=== PATIENT | male | born 1970 | race Caucasian/White ===

== ENCOUNTER 2016-09-03 19:14 | Inpatient (IN) | payer OTHER ==
[~2016-09-03] VITALS: Ht 188 cm; Wt 88.4 kg
[2016-09-03 20:09] LABS: HEMATOCRIT 38.5 % (38.0-50.0); MCH 30.8 PG (29.0-34.0); MCHC 34.8 G/DL (30.0-36.0); MCV 88.5 FL (86-99); PLATELET COUNT 237 K/uL (156-360); RBC DIS.WIDTH-CV 12.6 % (11.8-14.6); RBC DIS.WIDTH-SD 39.9 % (39-53); RED BLOOD COUNT 4.35 M/uL (4.00-5.50); WHITE BLOOD COUNT 6.1 K/uL (4.1-10.2)
[2016-09-03 20:20] LABS: CHLORIDE 101 mEq/L (99-109); POTASSIUM 3.4 mEq/L (3.7-5.4); SODIUM 136 mEq/L (136-147)
[2016-09-03 20:22] LABS: GLUCOSE 131 mg/dL (70-99)
[2016-09-03 20:23] LABS: ANION GAP 16 MEQ/L (2-14)
[2016-09-03 20:26] LABS: UREA NITROGEN (BUN) 4 mg/dL (9-23)
[2016-09-03 20:33] LABS: GFR ESTIMATE (CALCULATED) > 59 mL/min/
[2016-09-03 21:48] LABS: ADD MIUA? NO; BILIRUBIN NEGATIVE; BLOOD NEGATIVE; COLOR YELLOW ((YELLOW)); GLUCOSE (STRIP) NEGATIVE; KETONES 40; LEUKOCYTES NEGATIVE; NITRITE NEGATIVE; PH, URINE 6.5 (5-8); PROTEIN (STRIP) NEGATIVE; SPECIFIC GRAVITY 1.011 (1.000-1.030)
[2016-09-03 21:57] LABS: AMPHETAMINE NEGATIVE (500 ng/mL); BENZODIAZEPINES NEGATIVE (150 ng/mL); COCAINE NEGATIVE (150 ng/mL); METHAMPHETAMINE NEGATIVE (500 ng/mL); OPIATES (MORPHINE) NEGATIVE (100 ng/mL); PHENCYCLIDINE NEGATIVE (25 ng/mL); THC CANNABINOIDS NEGATIVE (50 ng/mL)
[2016-09-03 21:58] LABS: BARBITURATES NEGATIVE (200 ng/mL); INTERNAL CONTROLS VALID? YES; METHADONE NEGATIVE (200 ng/mL); OXYCODONE NEGATIVE (100 ng/mL); PROPOXYPHENE NEGATIVE (300 ng/mL); TRICYCLIC ANTIDEPRESSANTS PRESUMPTIVE POSITIVE (300 ng/mL)
[2016-09-03 22:11] LABS: SERUM ETHYL ALCOHOL < 10 mg/dL
[2016-09-04 04:20] VITALS: BP 140/91
[2016-09-04 09:40] VITALS: BP 113/63
== END 2016-09-04 13:50 | disposition home or self-care (01) | DRG 885 ==
LOC: EDBD 19:14 → EME 19:14 → 1WEST 23:27 → EDOF 23:27 → 1WEST 09-04 04:14
PROVIDERS: Nurse Practitioner Family
DX: F39 Unspecified mood [affective] disorder (principal); F10.20 Alcohol dependence, uncomplicated; F60.2 Antisocial personality disorder
CPT/HCPCS: 70450; 71020; 80048; 81003; 85027; 90837; 99281; 99285; G0480; J2060

== ENCOUNTER 2016-09-09 21:08 | Inpatient (IN) | payer OTHER ==
[~2016-09-09] VITALS: Ht 195.6 cm; Wt 87.0 kg
[2016-09-09 22:01] LABS: ADD MIUA? NO; BILIRUBIN NEGATIVE; BLOOD NEGATIVE; COLOR YELLOW ((YELLOW)); GLUCOSE (STRIP) NEGATIVE; KETONES NEGATIVE; LEUKOCYTES NEGATIVE; NITRITE NEGATIVE; PH, URINE 6.5 (5-8); PROTEIN (STRIP) NEGATIVE; SPECIFIC GRAVITY 1.005 (1.000-1.030); UCUL ADDED? NO; UROBILINOGEN 0.2 MG/DL (0.2-1.0)
[2016-09-09 22:07] LABS: EOSINOPHIL (%) 0.7 % (0-5); EOSINOPHIL COUNT 0.1 K/uL (0-0.3); HEMATOCRIT 41.3 % (38.0-50.0); IMMATURE GRANULOCYTE (%) 0.2 % (0.0-0.7); IMMATURE GRANULOCYTE COUNT 0.2 K/uL; LYMPHOCYTE COUNT 2.8 K/uL (1.0-2.8); MCH 30.8 PG (29.0-34.0); MCHC 34.9 G/DL (30.0-36.0); MCV 88.2 FL (86-99); MEAN PLAT.VOLUME 8.8 uM^3 (9.0-12.4); MONOCYTE COUNT 0.8 K/uL (0-0.8); NEUTROPHIL (%) 67.8 % (45-76); NEUTROPHIL COUNT 7.8 K/uL (1.8-6.4); PLATELET COUNT 336 K/uL (156-360); RBC DIS.WIDTH-CV 12.6 % (11.8-14.6); RBC DIS.WIDTH-SD 39.5 % (39-53); RED BLOOD COUNT 4.68 M/uL (4.00-5.50); WHITE BLOOD COUNT 11.5 K/uL (4.1-10.2)
[2016-09-09 22:10] LABS: AMPHETAMINE NEGATIVE (500 ng/mL); BARBITURATES NEGATIVE (200 ng/mL); BENZODIAZEPINES NEGATIVE (150 ng/mL); COCAINE NEGATIVE (150 ng/mL); INTERNAL CONTROLS VALID? YES; METHADONE NEGATIVE (200 ng/mL); METHAMPHETAMINE NEGATIVE (500 ng/mL); OPIATES (MORPHINE) NEGATIVE (100 ng/mL); OXYCODONE NEGATIVE (100 ng/mL); PHENCYCLIDINE NEGATIVE (25 ng/mL); PROPOXYPHENE NEGATIVE (300 ng/mL); THC CANNABINOIDS NEGATIVE (50 ng/mL); TRICYCLIC ANTIDEPRESSANTS NEGATIVE (300 ng/mL)
[2016-09-09 22:14] LABS: CHLORIDE 99 mEq/L (99-109); POTASSIUM 4.4 mEq/L (3.7-5.4); SODIUM 135 mEq/L (136-147)
[2016-09-09 22:17] LABS: GLUCOSE 116 mg/dL (70-99)
[2016-09-09 22:18] LABS: ANION GAP 13 MEQ/L (2-14); TOTAL BILIRUBIN 0.9 mg/dL (0.0-1.0)
[2016-09-09 22:19] LABS: SERUM ETHYL ALCOHOL < 10 mg/dL
[2016-09-09 22:20] LABS: GFR ESTIMATE (CALCULATED) > 59 mL/min/
[2016-09-09 22:21] LABS: ALKALINE PHOSPHATASE 87 IU/L (3-129)
[2016-09-09 22:22] LABS: UREA NITROGEN (BUN) 4 mg/dL (9-23)
[2016-09-09 22:24] LABS: SALICYLATE < 5.0 MG/DL (15-30)
[2016-09-09 22:25] LABS: CREATINE KINASE 362 IU/L (1-294); TOTAL CK 362 IU/L (1-294)
[2016-09-09 22:32] LABS: CK-MB 2.9 ng/mL (0.0-4.9)
[2016-09-10 07:44] VITALS: BP 124/62
== END 2016-09-10 10:14 | disposition home or self-care (01) | DRG 885 ==
LOC: EME 21:08 → EDOF 22:48 → 1WEST 22:48
PROVIDERS: Emergency Medicine
DX: F31.2 Bipolar disorder, current episode manic severe with psychotic features (principal); F10.20 Alcohol dependence, uncomplicated; F60.2 Antisocial personality disorder
CPT/HCPCS: 80053; 81003; 82550; 82553; 83930; 85025; 90837; 93005; 99281; 99285; G0480; J2060; J3486